=== PATIENT | female | born 1960 | race Caucasian/White ===

== ENCOUNTER 2018-06-09 17:59 | Inpatient (IN) ==
[2018-06-09] MEDS ORDERED: NS 1,000 ML IV ONE ×2 (18:31→21:04)
[2018-06-09] MEDS ORDERED: TORADOL IV ONE (18:31)
[2018-06-09] MEDS ORDERED: MORPHINE IV ONE (18:31)
[2018-06-09] MEDS ORDERED: ZOFRAN IV ONE (18:31)
--- NOTE | 2018-06-09 18:39 | PROVIDER DOCUMENTATION ---
HPI-Abdominal Pain/GI Problem - General Chief Complaint: Abdominal Pain Stated Complaint: ABD PAIN Time Seen by Provider: 06/09/18 18:21 Source: patient, family Allergies/Adverse Reactions: Patient Allergies Allergy/AdvReac Type Severity Reaction Status Date / Time No Known Allergies Allergy Verified 06/09/18 18:08 - History of Present Illness-ABD Nature of Presenting Problems: Had some bouts of "explosive diarrhea" about 5-6 days ago, took 2 immodium and hasn't had a BM since. This am, she stopped passing gas shortly after working, and has had progressive onset of generalized crampy/stabbing abdominal pain, non -radiating, with nausea, no vomiting. Pain is severe, worse than she has ever had in the past. No fever, chills, urine complaints. Abdominal Pain Onset Location: reports: generalized abdomen Pain Radiation: reports: no radiation Quality of Pain: reports: cramping, stabbing Severity in ED: reports: severe Onset/Duration: reports: this morning Timing: reports: still present, constant, changing over time, getting worse Activities at Onset: reports: none Exposure to sick contacts?: No Modifying Factors: improves with: nothing. worse with: movement, palpation Associated Symptoms: reports: constipation, loss of appetite, nausea, swelling/ mass in abdomen (bloating). denies: chest pain, fever/chills, genitourinary problems, trouble walking Last BM: 4 days ago Dark Stools Present?: reports: none noticed Rectal Bleeding: reports: none Rectal Pain: reports: none Emesis Description: reports: none Bruising or Bleeding Gums?: No Similar Symptoms Previously?: No Recently seen or treated by another doctor?: No Review of Systems - Adult - REVIEW OF SYSTEMS - ADULT Constitutional: reports: no symptoms reported Eyes: reports: no symptoms reported Ears, Nose, Mouth & Throat: reports: no symptoms reported Cardiovascular: reports: no symptoms reported Respiratory: reports: no symptoms reported Gastrointestinal: reports: see HPI, abdominal pain, constipation, nausea, poor appetite. denies: hematemesis, diarrhea, difficulty swallowing, frequent heartburn, rectal bleeding, vomiting Genitourinary: reports: no symptoms reported Musculoskeletal: reports: no symptoms reported Integumentary: reports: no symptoms reported Neurological: reports: no symptoms reported Psychiatric: reports: no symptoms reported Endocrine: reports: no symptoms reported Hematologic/Lymphatic: reports: no symptoms reported Allergic/Immunologic: reports: no symptoms reported All Other Systems: Reviewed and Negative Past History - Adult - PAST MEDICAL HISTORY-ADULT Review of Records: reports: Old Records Reviewed, Nursing Assessment Review, Medications Reviewed, Social history reviewed & non-contributory. Major Childhood Illnesses: reports: denies history Cardiovascular: reports: denies history Respiratory: reports: denies history Gastrointestinal: reports: denies history Obstetrical/Gynecological: reports: denies history Genitourinary: reports: denies history Musculoskeletal: reports: chronic pain, other (neuropathy) Neurological: reports: denies history Endocrine/Immune: reports: denies history Other Conditions: reports: denies history - PRIOR SURGERIES/PROCEDURES Surgical/Procedure History: reports: hysterectomy, other (bladder with pelvic mesh) - IMMUNIZATION STATUS Childhood Immunizations: See Nurse Assessment Flu Vaccine: See Nurse Assessment - FAMILY HISTORY Family History: reviewed, not pertinent - SOCIAL HISTORY Smoking: cigarettes, greater than 1 pack/day Provider spent 3-5 mins advising pt. on dangers of tobacco.: Discussed manners to quit use, and f/u contacts for add'l counseling. Substance Use: none/never Alcohol Use Frequency: rarely Living Situation: family Physical Exam-General - PHYSICAL EXAM-ADULT Initial Vital Signs Reviewed: Yes (VSSAF, ill appearing, thin, uncomfortable ) - CONSTITUTIONAL General Appearance: alert, mild distress, thin - EYES Eyes: PERRL/EOMI, pink conjunctivae - HEAD, EARS, NOSE, MOUTH & THROAT HENMT: normocephalic/atraumatic, moist mucous membranes, normal ENT inspection - NECK Neck: non-tender, full range of motion, supple - RESPIRATORY Respiratory: chest non-tender, lungs clear, normal breath sounds - CARDIOVASCULAR Cardiovascular: normal peripheral pulses, regular rate, rhythm, no edema, no gallop, no JVD, no murmur - GASTROINTESTINAL (ABDOMEN) Abdominal Exam: soft, no organomegaly, abnormal bowel sounds (hypoactive), distended, guarding, tenderness - LYMPHATIC Lymphatic: no adenopathy - MUSCULOSKELETAL Back Exam: normal inspection, no CVA tenderness, no vertebral tenderness Extremity: normal range of motion, non-tender, normal gait, normal inspection, no pedal edema, no calf tenderness - SKIN Integumentary: normal color, normal turgor, warm/dry Progress - PLAN OF CARE/RESULTS Progress/Plan/Lab Results: Vital Signs - 8 hr 06/09/18 18:03 Temperature 96.0 F L Pulse Rate 80 Respiratory Rate 20 Blood Pressure 123/71 O2 Sat by Pulse Oximetry 100 Orders Category Date Time Status Saline Loc NOW Care 06/09/18 18:29 Active NPO Diet 06/09/18 18:29 Active CHEST-PORTABLE [RAD] Stat Exams 06/09/18 18:[address] ABD/PELVIS W/IV CONT ONLY [CT] Stat Exams 06/09/18 18:31 Ordered CBC WITH ELECTRONIC DIFF [HEME] Stat Lab 06/09/18 18:30 Uncollected CK PROFILE [SP CHEM] Stat Lab 06/09/18 18:30 Uncollected COMPREHENSIVE METABOLIC PANEL [CHEM] Stat Lab 06/09/18 18:30 Uncollected LACTATE, PLASMA [CHEM] Stat Lab 06/09/18 18:30 Uncollected LIPASE [CHEM] Stat Lab 06/09/18 18:30 Uncollected MAGNESIUM [CHEM] Stat Lab 06/09/18 18:30 Uncollected PROTIME WITH INR [COAG] Stat Lab 06/09/18 18:30 Uncollected TROPONIN T Stat Lab 06/09/18 18:[address] W/POSS RFLX CULT [URINALYSIS] Stat Lab 06/09/18 18:31 Uncollected 0.9% Sodium Chloride Inj [Ns] 1,000 ml Med 06/09/18 18:31 Active IV 999 mls/hr Ketorolac [Toradol] Med 06/09/18 18:31 Discontinued 30 mg IV NOW ONE Morphine Med 06/09/18 18:31 Discontinued 4 mg IV NOW ONE Ondansetron [Zofran] Med 06/09/18 18:31 Discontinued 4 mg IV NOW ONE EKG [EKG] Stat Ther 06/09/18 18:29 Ordered Result Diagrams: 06/09/18 18:48 06/09/18 18:48 - CONSULTS/PCP/HOSPITALIST Notification #1 *Consult/PCP/Hospitalist*: Dr. Dwyer, surgeon Time Discussed: 20:55 Reason/Comments: recommend admit to hospitalist, NPO, IV fluids Consult Disposition: Admit #2 Consult: Dr. Mccarty Time Discussed: 20:50 Reason/Comments: request calling surgeon labor utilization superintendent first before admit - CHANGE OF SHIFT REPORT (ED Provider) Report Given and Care Transferred to:: [facility] Time of Transfer: 19:00 Items Pending: Labs, CT/MRI Results, Pain Control Departure - Departure Date of Disposition Decision: 06/09/18 Time of Disposition Decision: 20:52 DIAGNOSIS: Small bowel obstruction Disposition: ADMITTED INPATIENT 09 Certified Medical Emergency: Emergent Condition: Stable Referrals and Follow-Ups: Jonathan Irizarry MD [Primary Care Provider] - Work Excuses: Return to School/Parent Work - Critical Care Note This patient required my direct & personal management of CC.: No Attestation - Physician/ PAN Attestation Patient care was provided by Advanced Practice Provider:: No The physician spent face to face time with patient:: Yes Advanced Practice Provider documentation review:: Supervising physician onsite and consulted in the evaluation and care of this patient. The physician did have a face to face encounter with the patient.
[2018-06-09 19:12] LABS: BASO# 0.01 X1000 (0.0-0.2); BASO% 0.1 % (0.0-0.8); HEMATOCRIT 35.9 % (37.0-47.0); HEMOGLOBIN 11.7 g/dL (12.0-16.0); IMM GRAN# 0.03 X1000 (0.0-0.04); IMM GRAN% 0.2 % (0.0-0.5); LYMPH# 1.08 X1000 (1.2-3.4); LYMPH% 6.5 % (20.5-51.1); MCH 33.6 PG (27-31); MCHC 32.6 g/dL (33-37); MCV 103.2 FL (81-99); MONO# 0.47 X1000 (0.11-0.59); MONO% 2.8 % (1.7-9.3); NEUT# 15.05 X1000 (1.4-6.5); NEUT% 90.4 % (42.2-75.2); PLT 349 X1000 (130-400); RBC 3.48 XMIL (4.2-5.4); RDW 14.8 % (11.5-14.5); WBC 16.64 X1000 (4.8-10.8)
[2018-06-09 19:18] LABS: INR 0.95; PROTIME 13.2 Seconds (11.0-16.0)
[2018-06-09 19:41] LABS: AGAP 15; ALBUMIN 3.8 g/dL (3.5-5.0); ALKALINE PHOSPHATASE 55 U/L (32-104); BUN 7 mg/dL (8-22); CALCIUM 9.5 mg/dL (8.8-10.2); CHLORIDE 104 mmol/L (98-107); CK PROFILE 45 U/L (24-173); COSMO 284; CREATININE 0.5 mg/dL (0.5-0.9); ESTIMATED GFR > 60; GLUCOSE 178 mg/dL (70-104); GOT 11 U/L (10-30); GPT 8 U/L (10-36); LIPASE 8 U/L (13-60); MAGNESIUM 1.7 mg/dL (1.5-2.7); POTASSIUM 3.6 mmol/L (3.5-5.1); SODIUM 141 mmol/L (136-145); TCO2 22 mmol/L (25-35); TOTAL BILIRUBIN < 0.15 mg/dL (0.20-1.00); TOTAL PROTEIN 6.3 g/dL (6.3-8.3)
--- NOTE | 2018-06-09 20:26 | Diag Imaging Result Doc PS360 ---
CHEST-1 VIEW - 06/09/2018 INDICATION: upper abdominal pain COMPARISON: None FINDINGS: Lungs are hyperexpanded suggesting COPD. No infiltrates or edema. Heart size is normal. There is a calcified granuloma in the left midlung. IMPRESSION: COPD. Electronically signed by Bertin Rachel 06/09/2018 8:24 PM
[2018-06-09 20:39] LABS: BILIRUBIN URINE NEGATIVE (NEGATIVE); BLOOD URINE 1+ (NEGATIVE); CLARITY CLEAR (CLEAR); COLOR YELLOW; GLUCOSE URINE NEGATIVE (NEGATIVE); KETONE URINE 3+(Large) mg/dL (NEGATIVE); LEUKOCYTES URINE TRACE (NEGATIVE); NITRITE URINE NEGATIVE (NEGATIVE); PH URINE 6.5; PROTEIN URINE TRACE mg/dL (NEGATIVE); SP GRAVITY URINE 1.015; UROBILINOGEN URINE NORMAL
--- NOTE | 2018-06-09 20:39 | Diag Imaging Result Doc PS360 ---
CT ABD/PELVIS W/IV CONT ONLY - 06/09/2018 INDICATION: SBO COMPARISON: None FINDINGS: The lung bases are clear and the heart size is normal. There is dense material throughout the colon. The distal colon and rectum are collapsed. There is a small amount of ascites. The stomach and most of the proximal small bowel is slightly dilated. The small bowel proximally measures about 2.5 cm in caliber. There is swirling of the mid mesentery at the lower abdomen-pelvis. There is also a very collapsed small bowel loop distally at least to the terminal ileum. See images 71-75. No free air. There are moderate degenerative changes of the spine. No acute or suspicious bony lesion. IMPRESSION: Distal small bowel obstruction. This is felt to be the result of internal herniation of small bowel, at the lower abdominal/pelvic mesentery centrally. Small amount of ascites. This exam was performed using automated exposure control, adjustment of mA or kV according to patient size, and/or use of iterative reconstruction technique Electronically signed by Bertin Rachel 06/09/2018 8:37 PM
[2018-06-09 20:44] LABS: LYMPHS 6 % (21-51); MONO 7 % (1-9); SEGS 87 % (42-75)
[2018-06-09 20:45] LABS: HYPOCHROM 2+
[2018-06-09 20:48] LABS: URINE WBC <10 /HPF (<10)
[2018-06-09 20:49] LABS: URINE BACTERIA 1+ /HFP; URINE CAST NONE SEEN /LPF; URINE CRYSTAL NONE SEEN /HPF; URINE EPITHELIAL CELLS <10 /HPF (<10); URINE SOURCE CLEAN CATCH; URINE YEAST NONE SEEN /HPF
[2018-06-09] MEDS ORDERED: ZOFRAN IV PRN (21:04)
[2018-06-09] MEDS: MORPHINE IV PRN (21:34)
[2018-06-10] MEDS: MORPHINE IV PRN ×6 (03:41→23:41)
[2018-06-10] MEDS ORDERED: ZOSYN 3.375 GM in NS 50 ML IV SCH (06:00)
[2018-06-10] MEDS ORDERED: NS 1,000 ML IV SCH (06:15)
--- NOTE | 2018-06-10 06:50 | GENERAL SURGERY CONSULTATION ---
DATE: 06/10/2018 REQUESTING PHYSICIAN: Hospitalist and the emergency Department. REASON FOR CONSULTATION: Consult concerning abdominal pain. HISTORY OF PRESENT ILLNESS: A 57-year-old female presenting with upper abdominal pain starting onset this morning. She has a history of constipation. Her last bowel movement was 6 days ago. She had a relatively recent colonoscopy that did not show any pathology, but she has had persistent abdominal pain, again, noted to be in the epigastric and upper quadrant, as described as cramping, and sharp, and stabbing in nature. It has been somewhat improved with pain medicine. She has had similar episodes, but not to this severity. She was seen in the emergency department, had a CT scan that showed a distal small bowel obstruction that may be related to internal hernia with associated fluid and ascites. PAST MEDICAL HISTORY: Chronic back pain and neuropathy. PAST SURGICAL HISTORY: Hysterectomy and bladder sling. SOCIAL HISTORY: Current smoker. FAMILY HISTORY: Reviewed with the patient and noncontributory. HOME MEDICATIONS: None. ALLERGIES: None. REVIEW OF SYSTEMS: A full 10 point review of systems obtained and negative as specified in HPI. PHYSICAL EXAMINATION: Vital Signs: Patient is currently afebrile. Her vital signs are stable. General: No acute distress, but appears uncomfortable, female looks stated age. HEENT: Normocephalic, atraumatic. Pupils equal, round, reactive to light. Mucous membranes moist. Oropharynx benign. Neck: Supple. Trachea midline. Cardiovascular: Regular rate and rhythm. Lungs: Grossly clear. Abdomen: Soft, nondistended, but tender to palpation upper quadrants. No real peritoneal signs. Extremities: Moves all extremities. Neurologic: Grossly intact. Skin: No signs of jaundice. Vascular: All extremities perfused. LABORATORY: White blood cell count 16, hematocrit 35, platelet count 349,000, neutrophils do make 90%, constituting the left shift. Labs reviewed. Plasma lactate is elevated at 2.7. RADIOLOGY: CT scan independently reviewed, and radiology report reviewed. ASSESSMENT AND PLAN: A 57-year-old female with possible bowel obstruction versus internal hernia. Bowel obstruction versus internal hernia. At this time, we will continue the resuscitation process. Discussed with the patient the options for surgical intervention including diagnostic laparoscopy versus exploratory laparotomy. Discussed with her the risks, benefits, alternatives of each approach. Risks including but not limited to bleeding, infection, injury to bowel, leak at anastomosis, injury to other organs. She wants to proceed with surgery. We will make sure she is on IV fluids and continue resuscitation. We will monitor her and plan on the intervention today. cc: Jerry Dwyer MD MTDD
[2018-06-10 07:26] LABS: BASO# 0.01 X1000 (0.0-0.2); BASO% 0.1 % (0.0-0.8); HEMATOCRIT 31.6 % (37.0-47.0); HEMOGLOBIN 10.3 g/dL (12.0-16.0); IMM GRAN# 0.03 X1000 (0.0-0.04); IMM GRAN% 0.2 % (0.0-0.5); LYMPH# 1.37 X1000 (1.2-3.4); LYMPH% 7.7 % (20.5-51.1); MCH 33.8 PG (27-31); MCHC 32.6 g/dL (33-37); MCV 103.6 FL (81-99); MONO# 0.97 X1000 (0.11-0.59); MONO% 5.5 % (1.7-9.3); MPV 8.4 FL (7.4-10.4); NEUT# 15.37 X1000 (1.4-6.5); NEUT% 86.5 % (42.2-75.2); PLT 266 X1000 (130-400); RBC 3.05 XMIL (4.2-5.4); RDW 14.9 % (11.5-14.5); WBC 17.75 X1000 (4.8-10.8)
--- NOTE | 2018-06-10 10:11 | HISTORY AND PHYSICAL ---
PRIMARY CARE PHYSICIAN: Dr. Jonathan Irizarry. CHIEF COMPLAINT: Increased abdominal pain that progressively worsened. States her last bowel movement was 6 days ago. HISTORY OF PRESENTING ILLNESS: This is a 57-year-old female, who presents to [facility] ER with complaints of upper abdominal pain. States she has had some explosive diarrhea for 5/6 days ago. She took 2 Imodium and then has not had a bowel movement since. States on the morning of arrival, she stopped passing gas, and had progressive onset of generalized cramping and stabbing abdominal pain, that was nonradiating with nausea but no vomiting. Describes the pain as severe. Workup in the emergency room showed a white blood cell count of 16.64. Her plasma lactate on arrival was 2.7. Urinalysis showed negative nitrites, trace white blood cells, 1+ bacteria. We did a CT of the abdomen and pelvis that showed a distal small-bowel obstruction, felt to be the result of internal herniation of the small bowel at the lower abdominal/pelvic mesentery centrally with a small amount of ascites. She was admitted. We consulted surgery who saw the patient, who to spoke to the patient about her surgical intervention. The patient wanted to proceed with surgery. So, she is scheduled today to be transferred to [facility] for a possible diagnostic laparoscopy with possible laparotomy. PAST MEDICAL HISTORY: Chronic back pain and neuropathy. PAST SURGICAL HISTORY: Hysterectomy and a bladder sling. FAMILY HISTORY: Reviewed and noncontributory. SOCIAL HISTORY: She currently lives alone. Smokes 1 pack of cigarettes a day and has done so for 30 years. Denied any alcohol or illicit drug use. ALLERGIES: She had no known drug allergies. HOME MEDICATIONS: Will all be held at this time, but she does take a ProAir inhaler 2 puff inhalation q.4 hours p.r.n., Alprazolam 2 mg p.o. t.i.d., duloxetine 30 mg p.o. daily, estradiol 0.5 mg p.o. daily, and oxycodone 10 one p.o. 4 times daily. LABORATORY DATA: Showed a white blood cell count of 16.64, hemoglobin 11.7, hematocrit 35.9, platelets 349,000. PT and INR of 13.2 and 0.95. Sodium of 141, potassium 3.6, chloride 104, CO2 22, BUN of 7, creatinine 0.5, glucose 178, magnesium 1.7. Cardiac enzyme was negative. Lipase of 8. Plasma lactate on arrival was 2.7. Repeat this morning was 1.1. Urinalysis showed 1+ blood, negative nitrites, trace white blood cells, 1+ bacteria. Chest x-ray showed COPD. CT of the abdomen and pelvis showed a distal small bowel obstruction, felt to be the result of an internal herniation of the small bowel at the lower abdomen/pelvic mesenteries centrally. Small amount of ascites. REVIEW OF SYSTEMS: She denied any fever, chills, blurred vision, dizziness, chest pain, coughing, shortness of breath. She was positive for upper abdominal pain, nausea. No vomiting. Had some diarrhea about 5 days ago, but took some Imodium and so now has constipation. Denies any burning or hurting with urination. PHYSICAL EXAMINATION: VITAL SIGNS: On arrival, she had a temperature of 96.0 degrees, pulse 80, respirations 20, blood pressure 123/71, saturating 100% on room air. Currently, temperature is up to 98.3. GENERAL: This is a 57-year-old female, who is sitting up in the bed. Answers questions appropriately. HEENT: Normocephalic, atraumatic. Normal ENT inspection. Oropharynx and nares are clear. EYES: Pupils are equal, round, reactive to light and accommodation. Extraocular movements were intact. NECK: Normal inspection. Normal range of motion. LUNGS: Clear to auscultation bilaterally with equal lung expansion and chest wall movement. HEART: With regular rate and rhythm. No murmurs, rubs, or gallops. ABDOMEN: Soft. There is tenderness to palpation throughout her entire abdomen. Bowel sounds are hypoactive severely. MUSCULOSKELETAL: She has 5/5 strength x4 extremities. NEUROLOGICAL: Cranial nerves 2-12 appear grossly intact. ASSESSMENT: 1. Small bowel obstruction versus an internal hernia. 2. Leukocytosis. 3. Possible urinary tract infection. 4. Tobacco abuse. PLAN: She was initially admitted to [facility] Medical Floor. She will be transferred to the [facility] floor, held NPO. We consulted surgery, who has scheduled her for a diagnostic laparoscopy with possible laparotomy today. O2 per protocol. Morphine 2 mg IV q.2 hours p.r.n., normal saline at 125 mL an hour, Zofran 4 mg IV q.4 hours p.r.n., and Zosyn 3.375 grams IV q.6., and we will repeat a CBC and BMP in the a.m. Further orders after she is seen by attending, Dr. Sheridan, and after her surgical procedure. Dictated by DAYDAY Lara for Manjinder Sheridan MD cc: DAYDAY Lara MD Agree with above. the following is my own face to face assessment. Patient with nausea, vomiting, abdominal pain. found to have sbo suspected to be related to internal hernia. on exam abdomen has slight diffuse tenderness without rebound or guarding, minimally distended, bowel sound decreased but present. treating supportively and awaiting surgical recs(likely to surgery later today) MISTY
[2018-06-10] MEDS: NS 1,000 ML IV SCH ×2 (10:14→23:34)
[2018-06-10] MEDS: ZOFRAN IV PRN ×2 (10:15→16:35)
[2018-06-10] MEDS: ZOSYN 3.375 GM in NS 50 ML IV SCH ×2 (12:10→18:45)
[2018-06-10] MEDS ORDERED: ATIVAN IV PRN (17:09)
--- NOTE | 2018-06-10 17:36 | PROGRESS NOTE ---
DATE: 06/10/2018 SUBJECTIVE: The patient is a 57-year-old white female transferred from [place] with small bowel obstruction. Plans are for surgery this evening, Dr. Dwyer. OBJECTIVE: Vital signs: Temperature 99.6 degrees, heart rate 90, respirations 16, blood pressure 136/82, O2 saturation on room air 94%. LABORATORY: Hemoglobin 10.3, hematocrit 31.6, white blood count 17,700. Sodium 141, potassium 3.6, BUN 7, creatinine 0.5. Liver functions normal. Plasma lactate 2.7. ASSESSMENT: The patient is preop. She has moderate generalized abdominal pain. There is a history of chronic back pain, lumbar disk disease, and chronic anxiety. PLAN: Surgery this evening. Ativan is added, 0.5 mg IV q.4 hours due to benzodiazepine dependence. Nicotine patch will be considered tomorrow. cc: Jonathan Irizarry MD
[2018-06-10] MEDS ORDERED: SENSORCAINE-MPF 0.5%/EPI 1:200,000 ONE (18:34)
[2018-06-10] MEDS ORDERED: LR 1,000 ML ONE (18:35)
[2018-06-10] MEDS: PEPCID ONE (18:35)
[2018-06-10] MEDS ORDERED: EXPAREL 1.3% ONE (18:49)
[2018-06-10] MEDS ORDERED: MARCAINE 0.5% PF ONE (18:49)
[2018-06-10] MEDS ORDERED: SODIUM CHLORIDE 0.9% 20 ML ONE (18:49)
[2018-06-10] MEDS ORDERED: OFIRMEV 1000 MG/ISOTONIC SOLN 1,000 MG/100 ML BOTTLE ONE (19:12)
[2018-06-10] MEDS ORDERED: ZOFRAN ONE (19:15)
[2018-06-10] MEDS ORDERED: XYLOCAINE-MPF 2% ONE (19:27)
[2018-06-10] MEDS ORDERED: DIPRIVAN 1% ONE (19:27)
[2018-06-10] MEDS ORDERED: QUELICIN (DOSE) ONE (19:27)
[2018-06-10] MEDS ORDERED: ROBINUL ONE (19:45)
[2018-06-10] MEDS ORDERED: NEOSTIGMINE ONE (19:45)
[2018-06-10 20:11] LABS: URINE SOURCE CATH
[2018-06-10 20:17] LABS: BILIRUBIN URINE NEGATIVE (NEGATIVE); BLOOD URINE TRACE (NEGATIVE); COLOR YELLOW; GLUCOSE URINE NEGATIVE (NEGATIVE); KETONE URINE TRACE mg/dL (NEGATIVE); LEUKOCYTES URINE NEGATIVE (NEGATIVE); NITRITE URINE NEGATIVE (NEGATIVE); PH URINE 5.5; PROTEIN URINE TRACE mg/dL (NEGATIVE); SP GRAVITY URINE 1.026; TURBIDITY URINE CLEAR (CLEAR); UR EPITHELIAL CELLS <10 /HPF (<10); URINE BACTERIA NEGATIVE /HPF; URINE RBC <10 /HPF (<10); URINE WBC <10 /HPF (<10); UROBILINOGEN URINE NORMAL (NORMAL)
[2018-06-10] MEDS: DILAUDID ONE ×4 (20:18→20:30)
--- NOTE | 2018-06-10 21:45 | OPERATIVE NOTE ---
PROCEDURE DATE: 06/10/2018 PREOPERATIVE DIAGNOSIS: Abdominal pain. POSTOPERATIVE DIAGNOSIS: Ischemic bowel secondary to adhesions and internal volvulus. PROCEDURE: 1. Diagnostic laparoscopy converted to exploratory laparotomy. 2. Small-bowel resection (132 cm small bowel resected). SURGEON: Jerry Dwyer MD VAT HOUSE SUPERVISOR: Cedric Jain MD. Dr. Jain assisted with the entirety of the case. His presence was crucial to completion of the case. ANESTHESIA: General endotracheal. INTRAOPERATIVE FINDINGS: Multiple small adhesions causing blockage and essentially a closed loop obstruction and internal volvulus which is causing ischemia of 132 cm of small bowel. COMPLICATIONS: None at time of dictation. ESTIMATED BLOOD LOSS: 100 mL of acute blood loss. SPECIMENS REMOVED: Small bowel, measuring 132 cm. BRIEF HISTORY: A 57-year-old female presenting with abdominal pain. She had a CT scan that was concerning for bowel obstruction. She also had leukocytosis. Concerned that she was developing sepsis secondary to intra-abdominal process, I felt that she needed surgery. The risks, benefits, and alternatives were discussed the patient. Risks including, but not limited to bleeding, infection, risk of anesthesia, risk of bowel injury, risk of anastomotic leak, risk of injuring other organs discussed. All questions answered. DESCRIPTION OF PROCEDURE: After informed consent was obtained, patient was brought to the operative theatre, transferred to the operative table and placed in supine position. General endotracheal anesthesia was then performed without complication. A formal time-out was then performed, confirming patient, date, and procedure. All in agreement. At that time, attention was given to the abdomen. An infraumbilical incision was made through which, using Optiview technique, we inserted 11 mm trocar connected to insufflation and pneumoperitoneum was achieved. We then inserted the camera and noticed that there was a significant amount of ischemic bowel. We did not hesitate and converted to an exploratory laparotomy through a standard midline incision to enter into the abdomen. Once we did this, we encountered multiple small adhesions that were twisting the bowel, causing an internal volvulus and constricting the bowel and causing a closed loop obstruction causing ischemia. We released these adhesions, ran the small bowel from the ligament of Treitz to the ileocecal valve. Again, there was a large section of small bowel that was ischemic and we elected to resect this. We used the stapler and the LigaSure. The total amount of small bowel removed was 132 cm. We then performed a stapled [id number] functional end- to-end anastomosis and oversewed the staple line and closed the mesenteric defect. We irrigated out the abdomen copiously until the suctioned fluid was clear. The bowel itself at the anastomosis appeared to be viable. After we irrigated out, we closed the fascia with a running loop PDS, started on either side. We closed the skin with toni. The patient tolerated the procedure well and was transferred back to the recovery room. PLAN: We will have to monitor her for the possibility of short-gut syndrome. cc: Jerry Dwyer MD
[2018-06-11] MEDS: ZOSYN 3.375 GM in NS 50 ML IV SCH ×4 (00:26→22:44)
[2018-06-11] MEDS: PEPCID ONE (00:28)
[2018-06-11] MEDS: NS 1,000 ML IV SCH ×5 (03:19→19:57)
[2018-06-11] MEDS: MORPHINE IV PRN ×8 (04:44→22:44)
[2018-06-11] MEDS: PROTONIX IV SCH (06:33)
--- NOTE | 2018-06-11 07:32 | GENERAL SURGERY PROGRESS NOTE ---
DATE: 06/11/2018 SUBJECTIVE: The patient seems to be doing better. She says she is hurting less than she did before the operation. OBJECTIVE: Vital Signs: The patient is currently afebrile. Her vital signs are stable. General: No acute distress. Alert, interactive. Cardiovascular: Regular rate and rhythm. Lungs: Grossly clear. Abdomen soft, appropriately tender. Dressing in place. NG tube in place. LABORATORY: None this morning as of yet. ASSESSMENT AND PLAN: A 57-year-old status post exploratory laparotomy with small bowel resection (132 cm small bowel), currently postoperative day #1. At this time, the patient seems to be doing okay. We need to wait return of bowel function. We will continue the resuscitation process. Still getting IV fluids. We will keep the NG tube in place. We will start her on subcu heparin. We will make sure she gets sequential compression devices and ambulate to try to prevent deep venous thrombosis issues. We will put her on Protonix for gastrointestinal prophylaxis. Keep her on IV antibiotics given the translocation secondary to an ischemic bowel and will continue to monitor her closely. My partner will cover over the weekend. Hopefully, she can make some progress. cc: MD Jonathan Lemons MD
--- NOTE | 2018-06-11 08:30 | PROGRESS NOTE ---
DATE: 06/11/2018 VITAL SIGNS: Stable with temperature 98.8, heart rate 91, respirations 16, blood pressure 93/52, O2 saturation 98% on 2 liters nasal oxygen. Pain level in her abdomen is 8. LABORATORY: Reports are pending. SUBJECTIVE: Discussion was made with Dr. Dwyer, who discussed her surgery and possible future complications with short gut. She had a large amount of small intestine nonviable, which had to be removed. There was adhesion which caused the twisting and loss of circulation of the small bowel. OBJECTIVE: She has a NG tube. Chest is clear. Abdomen is soft. She is alert and understands information provided by Dr. Dwyer. PLAN: Continue postoperative care. She is currently on heparin. ANGIE hoses will be applied, and IV fluids restarted. cc: Jonathan Irizarry MD
[2018-06-11] MEDS: PERIDEX MT SCH ×3 (09:27→22:45)
[2018-06-11 09:45] LABS: EOS# 0.01 X1000 (0.0-0.7); EOS% 0.1 % (0.0-10.0); HEMATOCRIT 17.6 % (37.0-47.0); HEMOGLOBIN 5.5 g/dL (12.0-16.0); LYMPH# 1.19 X1000 (1.2-3.4); LYMPH% 11.2 % (20.5-51.1); MCH 33.3 PG (27-31); MCHC 31.3 g/dL (33-37); MCV 106.7 FL (81-99); MONO# 0.71 X1000 (0.11-0.59); MONO% 6.7 % (1.7-9.3); MPV 8.8 FL (7.4-10.4); NEUT# 8.69 X1000 (1.4-6.5); PLT 200 X1000 (130-400); RBC 1.65 XMIL (4.2-5.4); RDW 14.9 % (11.5-14.5)
[2018-06-11 10:08] LABS: HYPOCHROM 2+; LYMPHS 16 % (21-51); MONO 6 % (1-9); SEGS 78 % (42-75)
[2018-06-11 10:15] LABS: AGAP 9; BUN 14 mg/dL (8-22); CALCIUM 7.8 mg/dL (8.8-10.2); CHLORIDE 112 mmol/L (98-107); COSMO 288; CREATININE 0.5 mg/dL (0.5-0.9); ESTIMATED GFR > 60; GLUCOSE 107 mg/dL (70-104); SODIUM 144 mmol/L (136-145); TCO2 23 mmol/L (25-35)
[2018-06-11 10:40] LABS: HEMATOCRIT 17.8 % (37.0-47.0); HEMOGLOBIN 5.5 g/dL (12.0-16.0); LYMPH% 10.9 % (20.5-51.1); MCH 33.1 PG (27-31); MCHC 30.9 g/dL (33-37); MCV 107.2 FL (81-99); MONO# 0.69 X1000 (0.11-0.59); MONO% 6.3 % (1.7-9.3); MPV 8.4 FL (7.4-10.4); NEUT# 9.14 X1000 (1.4-6.5); NEUT% 82.8 % (42.2-75.2); PLT 192 X1000 (130-400); RBC 1.66 XMIL (4.2-5.4); RDW 14.9 % (11.5-14.5); WBC 11.03 X1000 (4.8-10.8)
[2018-06-11 11:06] LABS: HYPOCHROM 2+; LYMPHS 10 % (21-51); MONO 6 % (1-9); SEGS 84 % (42-75)
[2018-06-11] MEDS: HEPARIN SUBQ SCH ×2 (12:43→22:45)
[2018-06-12] MEDS: MORPHINE IV PRN ×9 (00:53→23:50)
[2018-06-12] MEDS: ZOSYN 3.375 GM in NS 50 ML IV SCH ×4 (05:31→23:50)
[2018-06-12] MEDS: NS 1,000 ML IV SCH ×6 (05:32→21:04)
[2018-06-12] MEDS: PROTONIX IV SCH (05:32)
[2018-06-12] MEDS: HEPARIN SUBQ SCH ×3 (05:33→21:03)
[2018-06-12 06:28] LABS: BASO# 0.01 X1000 (0.0-0.2); BASO% 0.1 % (0.0-0.8); HEMATOCRIT 23.3 % (37.0-47.0); HEMOGLOBIN 7.5 g/dL (12.0-16.0); IMM GRAN# 0.05 X1000 (0.0-0.04); IMM GRAN% 0.4 % (0.0-0.5); LYMPH# 1.64 X1000 (1.2-3.4); LYMPH% 13.1 % (20.5-51.1); MCH 32.3 PG (27-31); MCHC 32.2 g/dL (33-37); MCV 100.4 FL (81-99); MONO# 1.11 X1000 (0.11-0.59); MONO% 8.9 % (1.7-9.3); MPV 8.7 FL (7.4-10.4); NEUT# 9.69 X1000 (1.4-6.5); NEUT% 77.5 % (42.2-75.2); PLT 164 X1000 (130-400); RBC 2.32 XMIL (4.2-5.4); RDW 17.4 % (11.5-14.5)
[2018-06-12 06:34] LABS: AGAP 9; BUN 10 mg/dL (8-22); CALCIUM 8.5 mg/dL (8.8-10.2); CHLORIDE 109 mmol/L (98-107); COSMO 283; CREATININE 0.3 mg/dL (0.5-0.9); ESTIMATED GFR > 60; GLUCOSE 75 mg/dL (70-104); POTASSIUM 3.6 mmol/L (3.5-5.1); SODIUM 143 mmol/L (136-145); TCO2 25 mmol/L (25-35)
[2018-06-12] MEDS: PERIDEX MT SCH ×2 (08:13→21:03)
--- NOTE | 2018-06-12 11:51 | PROGRESS NOTE ---
DATE: 06/12/2018 SUBJECTIVE: Ms. Barrera had a small bowel obstruction and had surgery the day before yesterday. She had a small bowel resection, about 132 cm of small bowel was resected. She feels good. Her lungs are clear. Heart sounds are normal. Her current white count is 12.50 and hemoglobin is 7.5 with hematocrit 23.3. Electrolytes have been normal. She was seen also by Dr. Pagan today, who mentioned that he is comfortable with a hemoglobin of 7.5. No further transfusion is needed at the present time. We are going to continue the current management. -9 cc: MD Jonathan Dunn MD
[2018-06-12] MEDS: OFIRMEV 1000 MG/ISOTONIC SOLN 1,000 MG/100 ML BOTTLE IV PRN (15:48)
--- NOTE | 2018-06-13 01:49 | GENERAL SURGERY PROGRESS NOTE ---
DATE: 06/12/2018 SUBJECTIVE: No flatus. Still is having some distention. NG tube output has been a moderate amount. No fevers. PHYSICAL EXAMINATION: Vital signs: Pulse 62, blood pressure 118/66, oxygen saturation 94% on 2 L. General: She is alert. Abdomen: Soft, mildly distended. Incision has a dressing that is clean. LABORATORY DATA: Her hematocrit up to 23 after 2 units from 17. Creatinine is 0.3. Potassium is 3.6. ASSESSMENT AND PLAN: A 57-year-old female status post exploratory laparotomy with a significant bowel loop resection [address] Dwyer. Overall, she is doing okay. She still has an ileus. Her hematocrit has responded appropriately. She is on prophylactic heparin and PPI. We will follow along. cc: MD Jonathan Garcia MD
[2018-06-13] MEDS: MORPHINE IV PRN ×9 (03:36→22:43)
[2018-06-13] MEDS: HEPARIN SUBQ SCH ×4 (04:42→21:51)
[2018-06-13] MEDS: ZOSYN 3.375 GM in NS 50 ML IV SCH ×4 (05:24→22:37)
[2018-06-13] MEDS: PROTONIX IV SCH (05:24)
[2018-06-13] MEDS: NS 1,000 ML IV SCH ×3 (05:25→12:36)
[2018-06-13 05:49] LABS: HEMATOCRIT 23.9 % (37.0-47.0); HEMOGLOBIN 7.6 g/dL (12.0-16.0); IMM GRAN# 0.04 X1000 (0.0-0.04); IMM GRAN% 0.6 % (0.0-0.5); LYMPH# 0.88 X1000 (1.2-3.4); LYMPH% 12.2 % (20.5-51.1); MCH 32.5 PG (27-31); MCHC 31.8 g/dL (33-37); MCV 102.1 FL (81-99); MONO# 0.68 X1000 (0.11-0.59); MONO% 9.5 % (1.7-9.3); MPV 8.8 FL (7.4-10.4); NEUT# 5.59 X1000 (1.4-6.5); NEUT% 77.7 % (42.2-75.2); PLT 189 X1000 (130-400); RBC 2.34 XMIL (4.2-5.4); RDW 17.4 % (11.5-14.5); WBC 7.19 X1000 (4.8-10.8)
[2018-06-13 06:11] LABS: URINE SOURCE CLEAN CATCH
[2018-06-13 06:15] LABS: BILIRUBIN URINE NEGATIVE (NEGATIVE); BLOOD URINE SMALL (NEGATIVE); COLOR YELLOW; GLUCOSE URINE NEGATIVE (NEGATIVE); KETONE URINE >150 mg/dL (NEGATIVE); LEUKOCYTES URINE MODERATE (NEGATIVE); NITRITE URINE NEGATIVE (NEGATIVE); PH URINE 5.5; PROTEIN URINE TRACE mg/dL (NEGATIVE); SP GRAVITY URINE 1.016; TURBIDITY URINE CLEAR (CLEAR); UROBILINOGEN URINE NORMAL (NORMAL)
[2018-06-13 06:16] LABS: UR EPITHELIAL CELLS <10 /HPF (<10); URINE BACTERIA NEGATIVE /HPF; URINE RBC <10 /HPF (<10); URINE WBC <10 /HPF (<10)
[2018-06-13] MEDS: PERIDEX MT SCH ×2 (08:44→20:31)
[2018-06-13] MEDS: OFIRMEV 1000 MG/ISOTONIC SOLN 1,000 MG/100 ML BOTTLE IV PRN (08:44)
[2018-06-13] MEDS: ZOFRAN IV PRN ×3 (11:27→22:46)
--- NOTE | 2018-06-13 11:59 | PROGRESS NOTE ---
DATE: 06/13/2018 SUBJECTIVE: Ms. Barrera is doing fairly well. She moved her bowels. OBJECTIVE: Vital signs: Stable. Abdomen: Soft. LABORATORY: Her white count was 7.19, hemoglobin 7.6, hematocrit 23.9. PLAN: Things are stable. We will continue with the current management. -5 cc: MD Jonathan Dunn MD
--- NOTE | 2018-06-13 14:58 | GENERAL SURGERY PROGRESS NOTE ---
DATE: 06/13/2018 SUBJECTIVE: She did well. Bowels are beginning to function. She had some old blood passage overnight, but hematocrit has remained stable. Hemodynamically she has been stable, as well. No fevers. OBJECTIVE: Abdomen: Soft. Incisions intact. LABS: Hematocrit is stable at 23. ASSESSMENT AND PLAN: A 57-year-old female status post bowel resection. Will discontinue her nasogastric tube. I do not suspect she is bleeding. I think it is old blood she has passed based off the history and her hematocrits are stable. We will continue her prophylactic heparin. She is on Zosyn. We can stop this soon. Discontinue her NG tube and give her sips of liquids. cc: MD Jonathan Garcia MD
[2018-06-14] MEDS: MORPHINE IV PRN ×3 (01:17→07:43)
[2018-06-14] MEDS: NS 1,000 ML IV SCH ×2 (03:15→17:42)
[2018-06-14] MEDS: ZOFRAN IV PRN ×2 (03:19→07:44)
[2018-06-14] MEDS: SODIUM CHLORIDE 0.9% INJ SCH (04:42)
[2018-06-14] MEDS: ZOSYN 3.375 GM in NS 50 ML IV SCH (04:42)
[2018-06-14] MEDS: PROTONIX IV SCH (04:44)
[2018-06-14] MEDS: HEPARIN SUBQ SCH ×3 (04:48→22:10)
--- NOTE | 2018-06-14 05:47 | GENERAL SURGERY PROGRESS NOTE ---
DATE: 06/14/2018 SUBJECTIVE: Patient seems to be doing well. She has had some bloody bowel movements but given the way her bowel looked intraoperatively, this is not surprising. She is not sick to her stomach. She appeared to tolerate her liquids last night. OBJECTIVE: Vital Signs: The patient is currently afebrile. Her vital signs are stable. General Examination: No acute distress. Cardiovascular: Regular rate and rhythm. Lungs: Grossly clear. Abdomen: Soft. Appropriately tender. Incision is healing well. No signs of infection. Bowel sounds auscultated. Laboratory: Reviewed from the weekend. Her hematocrit has stayed stable at 23 after her blood transfusions. ASSESSMENT AND PLAN: This is a 57-year-old female, currently postoperative day #4 from exploratory laparotomy and small bowel resection. Postoperative state. At this time, we will advance her diet to a full liquid diet. We will see how she does clinically. I am concerned that she might have an issue with short-gut but we will have to see how she does once she is on a regular diet. We do have her on anticoagulation as I still think it is safe. Her hematocrit has remained stable. Her bloody bowel movements, I believe, are just this from residual effects from her ischemic bowel. She has been afebrile. Her white blood cell count has trended normal so I will stop her Zosyn. We will keep her on her Protonix for right now and see how she does. Overall, I think she is making improvements. cc: MD Jonathan Lemons MD
[2018-06-14 06:26] LABS: AGAP 17; BUN 8 mg/dL (8-22); CALCIUM 8.4 mg/dL (8.8-10.2); CHLORIDE 106 mmol/L (98-107); COSMO 285; CREATININE 0.3 mg/dL (0.5-0.9); ESTIMATED GFR > 60; GLUCOSE 58 mg/dL (70-104); POTASSIUM 2.8 mmol/L (3.5-5.1); SODIUM 145 mmol/L (136-145); TCO2 22 mmol/L (25-35)
[2018-06-14 06:28] LABS: EOS# 0.02 X1000 (0.0-0.7); EOS% 0.6 % (0.0-10.0); HEMATOCRIT 24.3 % (37.0-47.0); HEMOGLOBIN 7.6 g/dL (12.0-16.0); LYMPH# 0.92 X1000 (1.2-3.4); LYMPH% 26.6 % (20.5-51.1); MCH 32.3 PG (27-31); MCHC 31.3 g/dL (33-37); MCV 103.4 FL (81-99); MONO# 0.55 X1000 (0.11-0.59); MONO% 15.9 % (1.7-9.3); MPV 8.3 FL (7.4-10.4); NEUT# 1.97 X1000 (1.4-6.5); NEUT% 56.9 % (42.2-75.2); PLT 210 X1000 (130-400); RBC 2.35 XMIL (4.2-5.4); RDW 17.6 % (11.5-14.5); WBC 3.46 X1000 (4.8-10.8)
--- NOTE | 2018-06-14 08:27 | PROGRESS NOTE ---
DATE: 06/14/2018 VITAL SIGNS: Stable with temperature 98.8 degrees, heart rate 75, respirations 20, blood pressure 112/60, O2 saturation on room air 93%. LABORATORY: Hemoglobin 7.6, hematocrit 24.3, white blood count 3400 with a normal differential. Sodium 145, potassium 2.8, glucose 58, calcium 8.4. SUBJECTIVE: Patient is sitting up, feeling well. NG tube is out. She is on clear liquids. PLAN: Change pain and anxiety medicines to p.o. Since she has been receiving a lower dose than at home, she is placed on a lower dose of both. She will receive 1 unit of packed red blood cells today and lab will be rechecked tomorrow. Also, she will be given KCl IV. She is to ambulate with assistance. cc: Jonathan Irizarry MD
[2018-06-14] MEDS ORDERED: XANAX PO SCH (09:00)
[2018-06-14] MEDS: POTASSIUM CHLORIDE 20 MEQ/SWI 20 MEQ/100 ML IVPB IV SCH ×2 (09:20→11:33)
[2018-06-14] MEDS: PERIDEX MT SCH ×2 (09:20→22:11)
[2018-06-14] MEDS: PERCOCET-5 PO PRN ×4 (09:20→22:09)
[2018-06-14] MEDS: XANAX PO SCH ×2 (09:43→22:09)
[2018-06-14] MEDS ORDERED: PREPARATION H SUPPOSITORY PR PRN (19:50)
--- NOTE | 2018-06-15 05:01 | GENERAL SURGERY PROGRESS NOTE ---
DATE: 06/15/2018 SUBJECTIVE: The patient is doing okay. She has had multiple bowel movements, she says at least 15. OBJECTIVE: Vital Signs: Patient is currently afebrile. Her vital signs are stable. General: No acute distress. Resting comfortably. Cardiovascular: Regular rate and rhythm. Lungs: Grossly clear. Abdomen: Soft. Appropriately tender. Incision healing well. Bowel sounds auscultated. ASSESSMENT AND PLAN: A 57-year-old female, currently postoperative day #5 from exploratory laparotomy and small bowel resection. 1. Postoperative state at this time. We will advance her to a regular diet. She seems to be clinically doing well. She is having multiple bowel movements. We will see how she does with a regular diet. If she continues to have loose stools, may need to consider a low dose of Imodium, but we will just need to see how she does overall. I think she is making improvements. cc: MD Jonathan Lemons MD
[2018-06-15] MEDS: PERCOCET-5 PO PRN ×5 (05:07→21:39)
[2018-06-15] MEDS: HEPARIN SUBQ SCH ×3 (05:08→21:39)
[2018-06-15] MEDS: SODIUM CHLORIDE 0.9% INJ SCH (05:08)
[2018-06-15] MEDS: PROTONIX IV SCH (05:08)
[2018-06-15] MEDS ORDERED: POTASSIUM CHLORIDE 20 MEQ/SWI 40 MEQ/200 ML IVPB IV SCH (08:00)
--- NOTE | 2018-06-15 08:18 | PROGRESS NOTE ---
DATE: 06/15/2018 SUBJECTIVE/OBJECTIVE: Vital signs are stable with temperature 98.7 degrees, heart rate 66, respirations 18, blood pressure 142/73, and O2 saturation on room air 95%. Level of pain 3. Laboratory: Hematocrit 28. Potassium 2.8. Chest is clear. The patient continues to have moderate diarrhea. Abdomen is soft. PLAN: Increase Welchol or cholestyramine to 3.75 grams daily. Potassium is added both IV and p.o. Potassium will be rechecked tomorrow morning. She is to continue to ambulate as tolerated. cc: Jonathan Irizarry MD
[2018-06-15] MEDS: PERIDEX MT SCH ×2 (08:54→21:39)
[2018-06-15] MEDS: XANAX PO SCH ×2 (08:54→21:39)
[2018-06-15] MEDS: POTASSIUM CHLORIDE 20 MEQ/SWI 20 MEQ/100 ML IVPB IV SCH ×2 (08:54→13:13)
[2018-06-15] MEDS: NS 1,000 ML IV SCH ×3 (08:54→18:21)
[2018-06-15] MEDS ORDERED: WELCHOL PO SCH (09:00)
[2018-06-15] MEDS: WELCHOL POWDER PO SCH (09:02)
[2018-06-15] MEDS: KLOR-CON PO SCH ×3 (09:02→17:05)
[2018-06-16] MEDS: PERCOCET-5 PO PRN ×6 (02:03→22:22)
--- NOTE | 2018-06-16 06:11 | GENERAL SURGERY PROGRESS NOTE ---
DATE: 06/16/2018 SUBJECTIVE: Patient is still having a significant amount of diarrhea. I am unsure if she is able to maintain a good amount of volume as far as keeping herself from be dehydrated. I think this is likely related to the amount of small bowel we had to remove and maybe deferred signs that she is developing short-gut. OBJECTIVE: Vital Signs: The patient is currently afebrile. Her vital signs are stable. General Examination: No acute distress. Cardiovascular: Regular rate and rhythm. Lungs: Grossly clear. Abdomen: Soft. Appropriately tender. Incision healing well. Bowel sounds auscultated. ASSESSMENT AND PLAN: A 57-year-old, currently postoperative day #6 from exploratory laparotomy and small-bowel resection. Postoperative state. At this time, she is tolerating a regular diet but she seems to be having a significant amount of diarrhea. We will start her on Imodium low dose and see how she does. I do not want to send her home until we can at least get some of this diarrhea controlled. She is high risk for short-gut syndrome so we need to make sure that she is at least able to maintain volume status. Otherwise, continue current treatment. cc: MD Jonathan Lemons MD
[2018-06-16] MEDS: HEPARIN SUBQ SCH ×3 (06:16→21:28)
[2018-06-16] MEDS: NS 1,000 ML IV SCH ×6 (06:16→21:28)
[2018-06-16] MEDS: PROTONIX IV SCH (06:16)
[2018-06-16] MEDS: IMODIUM PO PRN ×3 (06:16→13:44)
--- NOTE | 2018-06-16 07:51 | PROGRESS NOTE ---
DATE: 06/16/2018 VITAL SIGNS: Stable with temperature 98.0, heart rate 90, respirations 16, blood pressure 139/56, O2 saturation on room air 95%. Potassium 2.9. SUBJECTIVE: Patient is still having moderate diarrhea despite cholestyramine. Imodium is added by Dr. Dwyer. OBJECTIVE: Chest is clear. Abdomen is soft. The patient complains with some abdominal discomfort due to p.o. potassium. She is receiving Protonix. Potassium may be changed to liquid if she continues to have problems. PLAN: IV and p.o. potassium. Imodium. Hopefully, her diarrhea will improve through the day today. Discharge will be considered after her diarrhea has improved. cc: Jonathan Irizarry MD
[2018-06-16] MEDS: KLOR-CON PO SCH ×3 (08:54→17:20)
[2018-06-16] MEDS: XANAX PO SCH ×2 (08:54→21:28)
[2018-06-16] MEDS: WELCHOL POWDER PO SCH (08:55)
[2018-06-16] MEDS: PERIDEX MT SCH ×2 (08:57→21:29)
[2018-06-16] MEDS: POTASSIUM CHLORIDE 40 MEQ in NS 250 ML IV SCH ×2 (09:09→21:29)
[2018-06-16] MEDS: ZOFRAN IV PRN ×3 (09:14→17:20)
[2018-06-16] MEDS ORDERED: TUMS EXTRA STRENGTH PO PRN (21:30)
[2018-06-16] MEDS ORDERED: MONISTAT-7 VAG CREAM VAG ONE (21:38)
[2018-06-17] MEDS: PERCOCET-5 PO PRN ×5 (02:40→20:01)
[2018-06-17] MEDS: NS 1,000 ML IV SCH (05:11)
[2018-06-17] MEDS: IMODIUM PO PRN ×7 (05:42→20:01)
[2018-06-17] MEDS: PROTONIX IV SCH (05:42)
[2018-06-17] MEDS: SODIUM CHLORIDE 0.9% INJ SCH (05:42)
[2018-06-17] MEDS: HEPARIN SUBQ SCH (05:42)
--- NOTE | 2018-06-17 06:10 | GENERAL SURGERY PROGRESS NOTE ---
DATE: 06/17/2018 SUBJECTIVE: Patient seems to be doing okay, but she is still having issues with diarrhea. It is still essentially water. We tried Imodium and that is somewhat thickened it up. OBJECTIVE: Vital Signs: Patient is currently afebrile. Her vital signs are stable. General: No acute distress. Cardiovascular: Regular rate and rhythm. Lungs: Grossly clear. Abdomen: Soft, appropriately tender. IN AND OUT: The patient had at least 10 bowel movements recorded. ASSESSMENT AND PLAN: A 57-year-old currently postoperative day #7 from exploratory laparotomy and small-bowel resection. Postoperative state. At this time, patient is tolerating a regular diet, but she is still having a significant amount of diarrhea. We will keep her on her Imodium to see if we can thicken up her stool. I do not want a discharge until we can get her diarrhea under control because I am concerned that she might have volume loss and possibility for short gut. We will continue to monitor. cc: MD Jonathan Lemons MD
[2018-06-17] MEDS ORDERED: DIFLUCAN PO ONE (07:44)
[2018-06-17] MEDS ORDERED: SALINE LOCK IV FLUID XX ONE (07:45)
[2018-06-17] MEDS: KLOR-CON PO SCH ×3 (08:08→18:00)
[2018-06-17] MEDS: XANAX PO PRN ×3 (08:08→20:02)
[2018-06-17] MEDS: PERIDEX MT SCH ×2 (08:08→20:01)
[2018-06-17] MEDS: WELCHOL POWDER PO SCH (08:09)
--- NOTE | 2018-06-17 08:10 | PROGRESS NOTE ---
DATE: 06/17/2018 VITAL SIGNS: Temperature 98.9 degrees, heart rate 68, respirations 16, blood pressure 102/66, O2 saturation on room air 99%. SUBJECTIVE: The patient continues to have some diarrhea, but it is improving with cholestyramine and Imodium. She developed short-gut after removal of a large amount of small intestine. Potassium is better this morning at 3.5. Hematocrit is 29. There is some bruising of the lower abdomen postoperatively, but no evidence of wound infection. The patient continues to have anxiety and pain unrelieved by Percocet 5. MEDICATIONS: Percocet is increased to 1-1/2 q.4 hours p.r.n. pain. Xanax is made 0.5 mg q.6 hours p.r.n. She is started on Diflucan 200 mg today for yeast infection, vaginal. PLAN: Continue to ambulate. IV is made a saline lock. cc: Jonathan Irizarry MD
[2018-06-17] MEDS ORDERED: MYCOSTATIN SUSP PO SCH (17:00)
[2018-06-17] MEDS: MYCELEX TROCHE PO SCH (20:00)
[2018-06-18] MEDS: PERCOCET-5 PO PRN ×5 (00:37→17:16)
[2018-06-18] MEDS: MYCELEX TROCHE PO SCH ×3 (02:49→13:18)
[2018-06-18] MEDS: PROTONIX IV SCH (05:10)
[2018-06-18 06:24] LABS: AGAP 8; BUN 4 mg/dL (8-22); CALCIUM 8.1 mg/dL (8.8-10.2); CHLORIDE 104 mmol/L (98-107); COSMO 277; CREATININE 0.3 mg/dL (0.5-0.9); ESTIMATED GFR > 60; GLUCOSE 83 mg/dL (70-104); POTASSIUM 3.6 mmol/L (3.5-5.1); SODIUM 141 mmol/L (136-145); TCO2 29 mmol/L (25-35)
--- NOTE | 2018-06-18 07:35 | GENERAL SURGERY PROGRESS NOTE ---
DATE: 06/18/2018 SUBJECTIVE: Patient seems to be doing okay; although, she is still having diarrhea, although it has improved overall. OBJECTIVE: Vital Signs: Patient is currently afebrile. Her vital signs are stable. General: No acute distress. Cardiovascular: Regular rate and rhythm. Lungs: Grossly clear. Abdomen: Soft, appropriately tender. ASSESSMENT AND PLAN: A 57-year-old currently postoperative day number 8 from exploratory laparotomy and small-bowel resection. Postoperative state. At this time, her diarrhea is improving with the Imodium, but it is still persistent. We will see how she does through the day. Her electrolytes have been corrected. I think they are improving. I think she is very close to discharge. I am still concerned that she might have a possibility of short-gut, so we will need to monitor her closely even in the postoperative period. But if she can get her diarrhea controlled today, maybe consider discharging in the next 24 to 48 hours. cc: MD Jonathan Lemons MD
--- NOTE | 2018-06-18 08:28 | PROGRESS NOTE ---
DATE: 06/18/2018 VITAL SIGNS: Stable with temperature of 98.5, heart rate 60, respiration 20, blood pressure 111/49, O2 sat on room air 100%. LABORATORY: Sodium 141, potassium 3.6, BUN 4, creatinine 0.3, calcium 8.1, glucose 83. SUBJECTIVE: The patient is feeling well this morning. She had no diarrhea last evening and is feeling better. OBJECTIVE: Chest: Clear. Abdomen: Soft. PLAN: Observe thorough the day. If she does well with less diarrhea, she will be discharged home this afternoon. cc: Jonathan Irizarry MD
[2018-06-18] MEDS: KLOR-CON PO SCH ×3 (08:54→17:16)
[2018-06-18] MEDS: PERIDEX MT SCH (08:54)
[2018-06-18] MEDS: WELCHOL POWDER PO SCH (08:54)
[2018-06-18] MEDS: XANAX PO PRN ×2 (08:57→15:40)
[2018-06-18] MEDS: IMODIUM PO PRN ×3 (08:58→13:19)
[2018-06-18] MEDS ORDERED: DIFLUCAN PO SCH (09:00)
[2018-06-18 16:38] VITALS: BP 108/59
--- NOTE | 2018-06-19 21:57 | DISCHARGE SUMMARY ---
ADMISSION DATE: 06/09/2018 DISCHARGE DATE: 06/18/2018 FINAL DIAGNOSES: 1. 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 2. 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 3. Chronic back pain and lumbar disk disease. 4. Chronic anxiety. 5. Yeast stomatitis and vaginitis. 6. Hypokalemia. DISCHARGE MEDICATIONS: Percocet 7.5 one q.i.d. p.r.n. pain, Imodium 1 or 2 q.i.d. p.r.n. diarrhea, cholestyramine powder 3.75 g once daily, Mycelex troches b.i.d., pantoprazole 40 mg daily, Tums antacid or calcium carbonate t.i.d., albuterol inhaler p.r.n., estradiol 0.5 mg once daily. PROCEDURE: Small bowel resection by Dr. Dwyer 06/11/2018. HISTORY: This is the first recent [facility] admission for this 57-year- old white female who presented to the emergency room with 2-day history of increasing abdominal pain. X-rays revealed small bowel obstruction. Dr. Dwyer was consulted. Surgery was performed on 06/11 with removal of 132 cm of small bowel due to ischemic necrosis from adhesions. Postoperatively her pain was fairly well controlled with morphine then Percocet. Diarrhea ensued, but has improved over the last couple of days. There is concern over short bowel syndrome with malnutrition and persistent diarrhea. This will be managed further as an outpatient. Instructions are given related to postoperative wound care. The patient is to return to my office in 1 week for followup. She is to call Dr. Dwyer about 06/25 for staple removal. Hopefully she can be managed with lower dose Percocet and Xanax than in the past. There is history of lumbar disk disease and she may need lumbar surgery at some point in the near future. cc: Jonathan Irizarry MD MTDD
== END 2018-06-18 18:32 | disposition home or self-care (01) | DRG 329 ==
LOC: P.ED 17:59 → P.MEDSURG 17:59 → OBSVTOIN 21:19 → SUATTDRO 21:19 → 4N 06-10 09:40
PROVIDERS: ADMIT Family Medicine; ATTEND Family Medicine
CPT/HCPCS: 36430; 71010; 71045; 74177; 80048; 80053; 81001; 82550; 83605; 83690; 83735; 84132; 84484; 85014; 85025; 85610; 86850; 86900; 86901; 86920; 87088; 88307; 93005; 94761; 94799; 96361; 96374; 96375; 99285; A9270; C9113; C9290; J0131; J0330; J1170; J1644; J1885; J2270; J2405; J2543; J3480; J7030; J7050; J7120; P9016; Q9967; S0020; S0028; S0164